=== PATIENT | male | born 1990 | race Caucasian/White ===

== ENCOUNTER 2020-11-11 19:12 | Outpatient (CLI) | payer SELFPAY ==
--- NOTE | 2020-11-11 19:24 | XRR_ITS ---
PROCEDURE INFORMATION: Exam: XR Abdomen Exam date and time: 11/11/2020 7:24 PM Age: 30 years old Clinical indication: Abdominal pain; Generalized; Patient HX: Abd pain, n/v/d x 1wk; Additional info: R19.7 - diarrhea, unspecified TECHNIQUE: Imaging protocol: XR of the abdomen. Views: Frontal supine view of the abdomen. 1 View. COMPARISON: No relevant prior studies available. FINDINGS: Gastrointestinal tract: There is a loop of small bowel in the left upper quadrant which appears slightly thickened and dilated up to 5.1 cm consistent with a probable ileus or obstruction. Bowel gas pattern is otherwise unremarkable. Bones/joints: Unremarkable. XR/XR KUB [id number] IMPRESSION: Ileus or small-bowel obstruction with a dilated loop in the left upper quadrant.
== END 2020-11-11 19:13 | disposition home or self-care (01) ==
PROVIDERS: PCP Nurse Practitioner Family; Visit Provider Nurse Practitioner Family
DX: R19.7 Diarrhea, unspecified (principal); R10.9 Unspecified abdominal pain; R11.2 Nausea with vomiting, unspecified
CPT/HCPCS: 74018

== ENCOUNTER 2020-11-11 22:44 | Emergency (ER) | payer SELFPAY ==
--- NOTE | 2020-11-11 22:46 | CTR_ITS ---
PROCEDURE INFORMATION: Exam: CT Abdomen And Pelvis With Contrast Exam date and time: 11/11/2020 10:46 PM Age: 30 years old Clinical indication: Abdominal pain; Generalized; Patient HX: Diffuse abd pain. Indigestion. TECHNIQUE: Imaging protocol: Computed tomography of the abdomen and pelvis with contrast. Radiation optimization: All CT scans at this facility use at least one of these dose optimization techniques: automated exposure control; mA and/or kV adjustment per patient size (includes targeted exams where dose is matched to clinical indication); or iterative reconstruction. Contrast material: OMNI 300; Contrast volume: 95 ml; Contrast route: INTRAVENOUS (IV); COMPARISON: CR (ABDOMEN, ) 11/11/2020 7:29 PM RADIATION DOSE METRICS: Total DLP (mGy-cm): FINDINGS: Lungs: There is a calcified granuloma at the left lung base. The lungs are otherwise clear. Liver: There is diffuse low attenuation throughout the liver consistent with fatty infiltration. No masses. Gallbladder and bile ducts: Normal. No calcified stones. No ductal dilation. Pancreas: Normal. No ductal dilation. Spleen: Normal. No splenomegaly. Adrenal glands: Normal. No mass. Kidneys and ureters: Normal. No hydronephrosis. Stomach and bowel: Loops of small bowel in the left upper quadrant with thickened callaway consistent with infectious or inflammatory enteritis. Appendix: No evidence of appendicitis. Intraperitoneal space: Unremarkable. No free air. No significant fluid collection. Vasculature: Unremarkable. No abdominal aortic aneurysm. Lymph nodes: Unremarkable. No enlarged lymph nodes. Urinary bladder: Unremarkable as visualized. Reproductive: Unremarkable as visualized. Bones/joints: Unremarkable. No acute fracture. Soft tissues: Small ventral hernia containing mesenteric fat but no bowel. CT/CT abdomen pelvis w con* [id number] IMPRESSION: Probable infectious or inflammatory enteritis. Ventral hernia. Fatty liver. Radiation Dose CTDIVOL = (mGy): DLP = 1998.08 (mGy-cm)
[2020-11-11 23:03] VITALS: BP 144/85; PULSE 104; RESP 16; TEMP 36.6; O2SAT 98; BMI 40.2
--- NOTE | 2020-11-11 23:21 | ED_ITS ---
HPI - Abdominal Pain General: Chief Complaint: Abdominal Pain Stated Complaint: abdomen pain Time Seen by Provider: 11/11/20 22:48 Source: patient Mode of arrival: ambulatory Limitations: no limitations History of Present Illness: HPI narrative: 30-year-old male who states has been have abdominal pain and vomiting since this morning. States pain is improved and is currently a 2 out of 10. He states he has not vomited since this morning. He had an x-ray done at clinic that showed a possible bowel obstruction he was sent here for CT scan. He denies any worsening improving factors. Associated Symptoms: Reports nausea and vomiting; Denies chills, dysuria and fever(s) Review of Systems Const: Denies: fever(s), chills, body aches or change in appetite Eyes: Denies: blurry vision or eye discomfort ENMT: Denies: throat pain or dental pain Card: Denies: chest pain Resp: Denies: dyspnea GI: Reports: abdominal pain, nausea and vomiting : Denies: dysuria Musc: Denies: neck pain or back pain Skin/Breast: Denies: rash Neuro: Denies: headache(s) Psych: Denies: depression John/Lymph: Denies: easy bruising All/Imm: Denies: urticaria PFSH ED PFSH: Medical History Abdominal pain Diarrhea Nausea & vomiting Physical Exam Const: COMMON NORMALS: no acute distress, patient oriented x3 and healthy appearing HENMT: COMMON NORMALS: normocephalic and atraumatic HEAD & SCALP: normocephalic and atraumatic Eye: COMMON NORMALS: Equal, round and reactive pupils present and EOMs intact bilaterally PUPIL: Yes Equal, round and reactive pupils present Neck/C-Spine: COMMON NORMALS: full ROM and supple Chest: COMMONS NORMALS: normal inspection of the chest and normal palpation of entire chest wall Resp: COMMON NORMALS: normal respiratory effort, No retractions, No use of accessory muscles and clear to auscultation bilaterally AUSCULTATION: clear to auscultation bilaterally Cardio: COMMON NORMALS: regular rate, regular rhythm and No murmurs present (Cardio) RATE: regular rate RHYTHM: regular rhythm GI: COMMON NORMALS: Normal to inspection, nondistended, normoactive bowel sounds present, Soft to palpation, non-tender and no masses PALPATION: Yes Soft to palpation OTHER: Umbilical hernia palpated and easily reduced no tenderness at this time Extremity: COMMON NORMALS: normal to inspection and full ROM Neuro: COMMON NORMALS: patient oriented x3, moves all extremities and no focal motor deficits Psych: COMMON NORMALS: mental status grossly normal, Normal thought process present and cooperative THOUGHT PROCESS: Normal thought process present Skin: COMMON NORMALS: no rashes or lesions noted and no wounds GENERAL SKIN EXAM: no rashes or lesions noted Course Vital Signs: Vital signs: Vital Signs Temperature 97.8 F 11/11/20 23:03 Pulse Rate 76 11/12/20 00:18 Respiratory Rate 18 11/12/20 00:18 Blood Pressure 144/85 11/11/20 23:03 Pulse Oximetry 99 11/12/20 00:18 MDM - Abdominal Pain MDM Narrative: Medical decision making narrative: Patient presents here with abdominal pain vomiting. CT showed enteritis we will start him on Augmentin along with Zofran. He feels much improved here and has had no vomiting here. His labs are normal. He is to follow-up his PCP and return if worsening. Lab Data: Labs: Lab Results 11/11/20 11/11/20 Range/Units 23:31 23:31 WBC 9.6 (4.0-10.0) 10^3/ uL RBC 5.47 H (4.1-5.3) 10^6/u L Hgb 15.1 (11.7-16.6) g/dL Hct 46.2 (42.0-52.0) % MCV 84.5 (80-94) fL MCH 27.6 L (28.0-34.0) pg MCHC 32.7 (30.0-36.0) g/dL RDW 12.6 (12.1-15.1) % Plt Count 322 (130-400) 10^3/c mm MPV 10.5 H (7.4-10.4) fL Neut % (Auto) 78.7 % Lymph % (Auto) 15.7 % Borden % (Auto) 5.1 % Eos % (Auto) 0.1 % Baso % (Auto) 0.2 % Neut # (Auto) 7.51 (1.8-7.7) 10^3/u L Lymph # (Auto) 1.5 (0.8-4.8) 10^3/u L Borden # (Auto) 0.5 (0.2-0.9) 10^3/u L Eos # (Auto) 0.0 (0.0-0.8) 10^3/u L Baso # (Auto) 0.0 (0.0-0.1) 10^3/u L Nucleated RBC % (a uto) 0 % Nucleated RBCs # 0.0 /100WBC Sodium 134 L (136-145) mmol/L Potassium 3.4 L (3.5-5.1) mmol/L Chloride 97 L (98-107) mmol/L Carbon Dioxide 26 (22-29) mmol/L Anion Gap 14.4 (5-19) BUN 8 (6-20) mg/dL Creatinine 0.7 (0.7-1.2) mg/dL GFR Calculation 133.3 H (90-130) mL/min Glucose 99 (65-115) mg/dL Calculated Osmolal ity 276 L (285-295) mOsm/k g Calcium 8.1 L (8.5-10.5) mg/dL Total Bilirubin 0.6 (0.15-1.2) mg/dL AST 15 (0-40) U/L ALT 33 (0-41) U/L Alkaline Phosphata se 68 (40-130) IU/L Total Protein 6.7 (6.6-8.7) g/dL Albumin 4.3 (3.5-5.2) g/dL Globulin 2.4 (1.3-4.6) g/dL Lipase 10 L (13-60) U/L Imaging Data ^: CT Abd/Pel: Attestation: I personally reviewed and interpreted this imaging study as follows: Radiologist's impression: [address] [address] [address] Scan Report Signed Patient: Chao Davila Unit #: [id number] : 1990 Age/Sex: 30 / M ADM Date: 11/11/20 Loc: ER Room/Bed: Attending Dr: Ordering Provider/Ordering MD: Esteban Dutta MD Date of Service: 11/11/20 Procedure(s): CT abdomen pelvis w con* [id number] Accession Number(s): [id number] Report Number: [id number] PROCEDURE INFORMATION: Exam: CT Abdomen And Pelvis With Contrast Exam date and time: 11/11/2020 10:46 PM Age: 30 years old Clinical indication: Abdominal pain; Generalized; Patient HX: Diffuse abd pain. Indigestion. TECHNIQUE: Imaging protocol: Computed tomography of the abdomen and pelvis with contrast. Radiation optimization: All CT scans at this facility use at least one of these dose optimization techniques: automated exposure control; mA and/or kV adjustment per patient size (includes targeted exams where dose is matched to clinical indication); or iterative reconstruction. Contrast material: OMNI 300; Contrast volume: 95 ml; Contrast route: INTRAVENOUS (IV); COMPARISON: CR (ABDOMEN, ) 11/11/2020 7:29 PM RADIATION DOSE METRICS: Total DLP (mGy-cm): 1998.08 FINDINGS: Lungs: There is a calcified granuloma at the left lung base. The lungs are otherwise clear. Liver: There is diffuse low attenuation throughout the liver consistent with fatty infiltration. No masses. Gallbladder and bile ducts: Normal. No calcified stones. No ductal dilation. Pancreas: Normal. No ductal dilation. Spleen: Normal. No splenomegaly. Adrenal glands: Normal. No mass. Kidneys and ureters: Normal. No hydronephrosis. Stomach and bowel: Loops of small bowel in the left upper quadrant with thickened callaway consistent with infectious or inflammatory enteritis. Appendix: No evidence of appendicitis. Intraperitoneal space: Unremarkable. No free air. No significant fluid collection. Vasculature: Unremarkable. No abdominal aortic aneurysm. Lymph nodes: Unremarkable. No enlarged lymph nodes. Urinary bladder: Unremarkable as visualized. Reproductive: Unremarkable as visualized. Bones/joints: Unremarkable. No acute fracture. Soft tissues: Small ventral hernia containing mesenteric fat but no bowel. CT/CT abdomen pelvis w con* [id number] IMPRESSION: Probable infectious or inflammatory enteritis. Ventral hernia. Fatty liver. Radiation Dose CTDIVOL = (mGy): DLP = 1998.08 (mGy-cm) Dictated By: Aguila Barry MD Signed By: Aguila Barry MD Signed Date/Time: 11/12/20 0000 DD/ 2358 Discharge Plan Discharge Patient Disposition: Home Clinical Impression: Enteritis Condition: Stable Prescriptions: New ondansetron 4 mg tablet,disintegrating 4 mg PO Q6H PRN (Reason: nausea and vomiting) Qty: 14 RF: 0 Augmentin 875-125 mg tablet 1 tab PO BID Qty: 14 RF: 0 No Action azithromycin 250 mg tablet See Rx Instructions PO .COMPLEX Qty: 6 RF: 0 ondansetron 4 mg tablet,disintegrating 4 mg PO Q8H PRN (Reason: nausea and vomiting) 5 Days Qty: 20 RF: 0 diphenoxylate-atropine [Lomotil] 2.5-0.025 mg tablet See Rx Instructions PO DAILY Qty: 20 RF: 0 Discharge Orders: Discharge ED (Routine); Ordered 11/12/20 Ordered By: Esteban Dutta Referrals: ERIC Chaudhry, RN MEDICAL SURGICAL [Primary Care Provider] - 1-3 days Discharge Diet: Advance as tolerated Discharge Activity: Resume usual activity Patient Instructions: Acute Nausea and Vomiting (ED) Coding Level of Care Code ED Basic Acoustic Analyst for Jaiden Fwandre Exam Comprehensive
[2020-11-11] MEDS: ondansetron 2 mg/ML SDV 2 mL 4 MG IVP (23:25)
[2020-11-11] MEDS: morphine 4 mg/mL SDV 1 mL IVP (23:25)
[2020-11-11] MEDS: iohexol 300 mg/mL 100 mL Btl IV (23:33)
[2020-11-11 23:36] LABS: Basophils % 0.2 %; Eosinophils % 0.1 %; Hematocrit 46.2 % (42.0-52.0); Hemoglobin 15.1 g/dL (11.7-16.6); Lymphocytes # 1.5 10^3/uL (0.8-4.8); Lymphocytes % 15.7 %; Mean Corpuscular HGB Conc 32.7 g/dL (30.0-36.0); Mean Corpuscular Hemoglobin 27.6 pg (28.0-34.0); Mean Corpuscular Volume 84.5 fL (80-94); Mean Platelet Volume 10.5 fL (7.4-10.4); Monocytes # 0.5 10^3/uL (0.2-0.9); Monocytes % 5.1 %; Neutrophils # 7.51 10^3/uL (1.8-7.7); Neutrophils % 78.7 %; Nucleated Red Blood Cells % 0 %; Platelet Count 322 10^3/cmm (130-400); Red Blood Count 5.47 10^6/uL (4.1-5.3); Red Cell Distribution Width 12.6 % (12.1-15.1); White Blood Count 9.6 10^3/uL (4.0-10.0)
[2020-11-12] LABS: Alanine Aminotransferase 33 U/L (0-41); Albumin Level 4.3 g/dL (3.5-5.2); Alkaline Phosphatase 68 IU/L (40-130); Anion Gap 14.4 (5-19); Aspartate Amino Transferase 15 U/L (0-40); Blood Urea Nitrogen 8 mg/dL (6-20); Calcium 8.1 mg/dL (8.5-10.5); Carbon Dioxide 26 mmol/L (22-29); Chloride 97 mmol/L (98-107); Globulin 2.4 g/dL (1.3-4.6); Glomerular Filtration Rate 133.3 mL/min (90-130); Glucose 99 mg/dL (65-115); Lipase 10 U/L (13-60); Osmolality Calculated 276 mOsm/kg (285-295); Potassium 3.4 mmol/L (3.5-5.1); Sodium 134 mmol/L (136-145); Total Bilirubin 0.6 mg/dL (0.15-1.2); Total Protein 6.7 g/dL (6.6-8.7)
[2020-11-12 00:18] VITALS: PULSE 76; RESP 18; O2SAT 99
== END 2020-11-12 00:18 | disposition home or self-care (01) ==
PROVIDERS: Emergency Provider Emergency Medicine; PCP Nurse Practitioner Family
DX: K52.9 Noninfective gastroenteritis and colitis, unspecified (principal)
CPT/HCPCS: 74177; 80053; 83690; 85025; 96374; 96375; 99283; J2270; J2405; Q9967